=== PATIENT | female | born 2000 | race Caucasian/White ===

== ENCOUNTER 2020-12-03 09:03 | Outpatient (CLI) | payer BC, OTHER, SELFPAY ==
[2020-12-03 10:06] LABS: Basophils Absolute Auto 0.1 K/mm3 (0.0-0.1); Basophils Percent Auto 0.5 % (0.2-1.2); Eosinophils Absolute Auto 0.5 K/mm3 (0-0.3); Eosinophils Percent Auto 4.5 % (0-4.4); Hematocrit 39.5 % (37.0-47.0); Hemoglobin 12.7 g/dL (12.0-15.0); Immature Granulocyte Absolute 0.03 K/mm3 (0.00-0.031); Immature Granulocyte Percent A 0.2 % (0-0.5); Lymphocytes Absolute Auto 3.38 K/mm3 (0.9-3.2); Mean Corpuscular HGB Conc 32.2 g/dl (32-36); Mean Corpuscular Hemoglobin 27.3 pg (26-34); Mean Corpuscular Volume 84.9 fl (80-100); Mean Platelet Volume 9.3 fl (7.4-10.4); Monocytes Absolute Auto 0.8 K/mm3 (0.1-0.6); Monocytes Percent Auto 6.2 % (2.6-8.5); Neutrophils Absolute Auto 7.3 K/mm3 (1.3-6.7); Neutrophils Percent Auto 60.6 % (45.5-73.1); Platelet Count Result 334 k/mm3 (150-375); Red Blood Count 4.65 M/mm3 (4.2-5.4); Red Cell Distribution Width 13.7 % (11.5-14.5); White Blood Count 12.1 K/mm3 (4.5-10.0)
[2020-12-03 10:14] LABS: Alanine Aminotransferase 25 U/L (4-35); Albumin Level 4.6 g/dL (3.5-5.1); Alkaline Phosphatase 89 U/L (38-126); Anion Gap 9 mmol/L (8-16); Aspartate Amino Transferase 20 U/L (14-36); Bilirubin,Total 0.3 mg/dL (0.2-1.3); Blood Urea Nitrogen 10 mg/dL (7-17); Calcium 9.6 mg/dL (8.4-10.2); Carbon Dioxide 26 mmol/L (22-30); Chloride 106 mmol/L (98-107); Cholesterol 210 mg/dL (0-200); Estimated Glomerular Filt Rate > 60; Glucose 102 mg/dL (65-110); HDL Direct 28 mg/dL; Potassium 4.2 mmol/L (3.4-5.0); Sodium 141 mmol/L (137-145); Triglycerides 298 mg/dL (<150)
[2020-12-03 10:25] LABS: LDL Cholesterol Direct 121 mg/dL
== END 2020-12-03 09:04 | disposition home or self-care (01) ==
PROVIDERS: PCP Internal Medicine; Visit Provider Nurse Practitioner
DX: Z13.228 Encounter for screening for other metabolic disorders (principal); Z13.220 Encounter for screening for lipoid disorders
CPT/HCPCS: 36415; 80053; 80061; 85025

== ENCOUNTER 2021-02-10 08:53 | Outpatient (CLI) | payer BC, OTHER, SELFPAY ==
[2021-02-10 09:42] LABS: Basophils Absolute Auto 0.1 K/mm3 (0.0-0.1); Basophils Percent Auto 0.5 % (0.2-1.2); Eosinophils Absolute Auto 0.6 K/mm3 (0-0.3); Eosinophils Percent Auto 4.9 % (0-4.4); Hematocrit 39.1 % (37.0-47.0); Hemoglobin 12.9 g/dL (12.0-15.0); Immature Granulocyte Absolute 0.05 K/mm3 (0.00-0.031); Immature Granulocyte Percent A 0.4 % (0-0.5); Lymphocytes Absolute Auto 3.43 K/mm3 (0.9-3.2); Lymphocytes Percent Auto 28.7 % (18.3-44.2); Mean Corpuscular Hemoglobin 26.9 pg (26-34); Mean Corpuscular Volume 81.6 fl (80-100); Mean Platelet Volume 9.3 fl (7.4-10.4); Monocytes Absolute Auto 0.7 K/mm3 (0.1-0.6); Monocytes Percent Auto 5.4 % (2.6-8.5); Neutrophils Absolute Auto 7.2 K/mm3 (1.3-6.7); Neutrophils Percent Auto 60.1 % (45.5-73.1); Platelet Count Result 329 k/mm3 (150-375); Red Blood Count 4.79 M/mm3 (4.2-5.4); Red Cell Distribution Width 13.8 % (11.5-14.5); White Blood Count 11.9 K/mm3 (4.5-10.0)
== END 2021-02-10 08:54 | disposition home or self-care (01) ==
LOC: ANHLAB 08:54
PROVIDERS: PCP Internal Medicine; Visit Provider Nurse Practitioner
DX: D72.829 Elevated white blood cell count, unspecified (principal)
CPT/HCPCS: 36415; 85025

== ENCOUNTER 2021-03-26 10:00 | Outpatient (CLI) | payer BC, OTHER, SELFPAY ==
--- NOTE | 2021-03-26 15:20 | WPDPFTINT ---
PFT Procedure Performed PFT Procedure Performed Spirometry with Pre/Post Bronchodilator Plethysmography (Lung Vol) Diffusing Cap (DLCO) Flow Vol Loop PFT Interpretation This is a pulmonary function test with pre and post-bronchodilator spirometry, plethysmography and diffusing capacity. The test was performed and results interpreted in accordance with the 2019 and 2005 ATS/ERS Task Force guidelines respectively using the Global Lung Function Initiative-2012 reference equations. Patient demonstrated good effort and cooperation. Reproducibility criteria were met. The quality of the pre bronchodilator spirometry maneuver was Grade A and post bronchodilator spirometry maneuver was Grade A. Findings: Spirometry:The contour the inspiratory and expiratory flow tracing are normal. The pre bronchodilator FVC is 4.35 L, 106% predicted. The pre bronchodilator FEV1 is 3.56 L, 100% predicted. The FEV1: FVC ratio was 82%. The post bronchodilator FVC is 4.28 L, representing 1% decrease. The post bronchodilator FEV1 is 3.62 L, representing a 2% decrease. The post bronchodilator FEV1: FVC ratio is 85%. Plethysmography: The total lung capacity is 5.35 L, 99% predicted. The functional residual capacity is 2.65 L, 90% predicted. The residual volume is 1.00 L, 74% predicted. Diffusing capacity: The absolute diffusion capacity is 28.3, 107% predicted. The diffusing capacity corrected for alveolar volume is 5.33, 108% predicted. Impression: The spirometry is normal without evidence of an obstructive abnormality. There is no significant improvement after inhaling a single dose of albuterol. The lung volumes are normal. The diffusing capacity is normal. There are no prior studies for comparison
== END 2021-03-26 10:01 | disposition home or self-care (01) ==
PROVIDERS: PCP Internal Medicine; Visit Provider Family Medicine
DX: R06.00 Dyspnea, unspecified (principal)
CPT/HCPCS: 94060; 94726; 94729

== ENCOUNTER 2022-07-08 09:46 | Outpatient (CLI) | payer BC, SELFPAY ==
[2022-07-08 18:39] LABS: Basophils Absolute Auto 0.1 K/mm3 (0.0-0.1); Basophils Percent Auto 0.6 % (0.2-1.2); Eosinophils Absolute Auto 0.4 K/mm3 (0-0.3); Eosinophils Percent Auto 3.5 % (0-4.4); Hematocrit 42.1 % (37.0-47.0); Hemoglobin 13.7 g/dL (12.0-15.0); Immature Granulocyte Absolute 0.04 K/mm3 (0.00-0.031); Immature Granulocyte Percent A 0.4 % (0-0.5); Lymphocytes Percent Auto 33.6 % (18.3-44.2); Mean Corpuscular HGB Conc 32.5 g/dl (32-36); Mean Corpuscular Hemoglobin 27.7 pg (26-34); Mean Corpuscular Volume 85.1 fl (80-100); Mean Platelet Volume 9.3 fl (7.4-10.4); Monocytes Absolute Auto 0.6 K/mm3 (0.1-0.6); Monocytes Percent Auto 5.6 % (2.6-8.5); Neutrophils Absolute Auto 6.2 K/mm3 (1.3-6.7); Neutrophils Percent Auto 56.3 % (45.5-73.1); Platelet Count Result 358 k/mm3 (150-375); Red Blood Count 4.95 M/mm3 (4.2-5.4); Red Cell Distribution Width 13.3 % (11.5-14.5)
[2022-07-08 19:06] LABS: Alanine Aminotransferase 36 U/L (6-35); Albumin Level 4.6 g/dL (3.5-5.1); Alkaline Phosphatase 79 U/L (38-126); Anion Gap 6 mmol/L (8-16); Aspartate Amino Transferase 37 U/L (14-36); Bilirubin,Total 0.4 mg/dL (0.2-1.3); Blood Urea Nitrogen 12 mg/dL (7-17); Calcium 9.1 mg/dL (8.4-10.2); Carbon Dioxide 30 mmol/L (22-30); Chloride 103 mmol/L (98-107); Estimated Glomerular Filt Rate > 60; Glucose 83 mg/dL (65-110); Potassium 4.5 mmol/L (3.4-5.0); Sodium 139 mmol/L (137-145)
== END 2022-07-08 09:47 | disposition home or self-care (01) ==
LOC: ANHGOSHLAB 09:48
PROVIDERS: PCP Internal Medicine; Visit Provider Nurse Practitioner
DX: F41.9 Anxiety disorder, unspecified (principal)
CPT/HCPCS: 36415; 80053; 84443; 85025

== ENCOUNTER 2022-11-23 10:47 | Outpatient (CLI) | payer BC, SELFPAY ==
[2022-11-23 19:05] LABS: Basophils Absolute Auto 0.1 K/mm3 (0.0-0.1); Basophils Percent Auto 0.5 % (0.2-1.2); Eosinophils Absolute Auto 0.8 K/mm3 (0-0.3); Eosinophils Percent Auto 7.5 % (0-4.4); Hematocrit 40.4 % (37.0-47.0); Hemoglobin 13.1 g/dL (12.0-15.0); Immature Granulocyte Absolute 0.06 K/mm3 (0.00-0.031); Immature Granulocyte Percent A 0.6 % (0-0.5); Lymphocytes Absolute Auto 3.24 K/mm3 (0.9-3.2); Lymphocytes Percent Auto 31.7 % (18.3-44.2); Mean Corpuscular HGB Conc 32.4 g/dl (32-36); Mean Corpuscular Hemoglobin 27.6 pg (26-34); Mean Corpuscular Volume 85.1 fl (80-100); Monocytes Absolute Auto 0.5 K/mm3 (0.1-0.6); Monocytes Percent Auto 4.9 % (2.6-8.5); Neutrophils Absolute Auto 5.6 K/mm3 (1.3-6.7); Neutrophils Percent Auto 54.8 % (45.5-73.1); Platelet Count Result 329 k/mm3 (150-375); Red Blood Count 4.75 M/mm3 (4.2-5.4); Red Cell Distribution Width 13.6 % (11.5-14.5); White Blood Count 10.2 K/mm3 (4.5-10.0)
[2022-11-23 19:20] LABS: Alanine Aminotransferase 38 U/L (6-35); Albumin Level 4.1 g/dL (3.5-5.1); Alkaline Phosphatase 83 U/L (38-126); Anion Gap 5 mmol/L (8-16); Aspartate Amino Transferase 35 U/L (14-36); Bilirubin,Total 0.3 mg/dL (0.2-1.3); Blood Urea Nitrogen 10 mg/dL (7-17); Calcium 8.9 mg/dL (8.4-10.2); Carbon Dioxide 30 mmol/L (22-30); Chloride 105 mmol/L (98-107); Estimated Glomerular Filt Rate > 60; Glucose 100 mg/dL (65-110); Sodium 140 mmol/L (137-145)
== END 2022-11-23 10:48 | disposition home or self-care (01) ==
LOC: ANHGOSHLAB 10:48
PROVIDERS: PCP Internal Medicine; Visit Provider Clinical Nurse Specialist
DX: D72.829 Elevated white blood cell count, unspecified (principal)
CPT/HCPCS: 36415; 80053; 85025

== ENCOUNTER 2023-10-26 10:17 | Outpatient (CLI) | payer BC, SELFPAY ==
--- NOTE | ~2023-10-26 | US_ITS ---
EXAMINATION: US OB transvaginal DATE: 10/26/2023 11:02 INDICATION: Uncertain dating of first trimester . TECHNIQUE: Real-time pelvic ultrasound utilizing both a transvaginal and transabdominal probe was pe rformed. The interpreting radiologist was not present for the study. COMPARISON: None. FINDINGS: The uterus measures 8.9 x 7.2 x 6.9 cm. There is an intrauterine gestational sac. A yolk sac and fet al pole are identified. The crown rump length measures 1.4 cm, which correlates with an estimated ges tational age of 7 weeks and 5 days. heart motion is identified measuring 176 beats per minute ( bpm) by M-mode Doppler. The right ovary measures 4.2 x 3.5 x 2.8 cm. Vascular flow identified in the right ovary on color Dop pler. The left ovary is not visualized. There is no free fluid in the pelvis. IMPRESSION: 1. Single living fetus with heart rate of 176 bpm. 2. Gestational age by ultrasound of 7 weeks 5 day(s) +/- 5 day(s) with ultrasound estimated date of delivery (KELLI) of 06/08/2024. Reviewed, dictated and finalized at location A. IMPRESSION: 1. Single living fetus with heart rate of 176 bpm. 2. Gestational age by ultrasound of 7 weeks 5 day(s) +/- 5 day(s) with ultraso und estimated date of delivery (KELLI) of 06/08/2024.
== END 2023-10-26 10:18 ==
LOC: MICIMG 10:20
PROVIDERS: PCP Advanced Practice Midwife; Visit Provider Advanced Practice Midwife
DX: Z36.87 Encounter for antenatal screening for uncertain dates (principal); Z3A.00 Weeks of gestation of pregnancy not specified
CPT/HCPCS: 76817

== ENCOUNTER 2023-11-03 14:23 | Outpatient (NON) | payer BC, SELFPAY ==
[2023-11-03 14:52] VITALS: BMI 38.9
[2023-11-03 14:54] LABS: Basophils Percent Auto 0.3 % (0.2-1.2); Eosinophils Absolute Auto 0.2 K/mm3 (0-0.3); Eosinophils Percent Auto 1.4 % (0-4.4); Hemoglobin 12.7 g/dL (12.0-15.0); Immature Granulocyte Absolute 0.09 K/mm3 (0.00-0.031); Immature Granulocyte Percent A 0.6 % (0-0.5); Lymphocytes Absolute Auto 3.63 K/mm3 (0.9-3.2); Lymphocytes Percent Auto 24.9 % (18.3-44.2); Mean Corpuscular HGB Conc 34.3 g/dl (32-36); Mean Corpuscular Hemoglobin 28.3 pg (26-34); Mean Corpuscular Volume 82.6 fl (80-100); Mean Platelet Volume 8.6 fl (7.4-10.4); Monocytes Absolute Auto 0.8 K/mm3 (0.1-0.6); Monocytes Percent Auto 5.6 % (2.6-8.5); Neutrophils Absolute Auto 9.8 K/mm3 (1.3-6.7); Neutrophils Percent Auto 67.2 % (45.5-73.1); Platelet Count Result 342 k/mm3 (150-375); Red Blood Count 4.48 M/mm3 (4.2-5.4); Red Cell Distribution Width 13.2 % (11.5-14.5); White Blood Count 14.6 K/mm3 (4.5-10.0)
[2023-11-03 15:12] LABS: Alanine Aminotransferase 41 U/L (6-35); Albumin Level 4.4 g/dL (3.5-5.1); Alkaline Phosphatase 92 U/L (38-126); Anion Gap 13 mmol/L (4-12); Aspartate Amino Transferase 24 U/L (14-36); Bilirubin,Total 0.3 mg/dL (0.2-1.3); Blood Urea Nitrogen 8 mg/dL (7-17); Calcium 9.1 mg/dL (8.4-10.2); Carbon Dioxide 22 mmol/L (22-30); Chloride 98 mmol/L (98-107); Estimated CRCL calculation 204 ml/min; Estimated Glomerular Filt Rate > 60; Glucose 91 mg/dL (65-110); Potassium 3.5 mmol/L (3.4-5.0); Sodium 133 mmol/L (137-145); Uric Acid 4.2 mg/dL (2.5-7.5)
[2023-11-03 15:36] LABS: Collection Time Urine 24 HOURS
[2023-11-03 15:54] LABS: Creatinine Urine 60.1 mg/dL; Patient Weight 227 Lbs; Total Protein Urine Random 10 mg/dL
[2023-11-03 16:03] LABS: Creatinine Clearance Urine 245.7 ml/min (75-125); Total Protein Urine 24 Hr 280 mg/24hr (28-141); Total Volume 24 Hour Urine 2800 ml
== END 2023-11-03 14:24 | disposition home or self-care (01) ==
PROVIDERS: PCP Advanced Practice Midwife; Visit Provider Obstetrics & Gynecology Gynecology
DX: O13.9 Gestational [pregnancy-induced] hypertension without significant proteinuria, unspecified trimester (principal); Z3A.00 Weeks of gestation of pregnancy not specified
CPT/HCPCS: 36415; 80053; 81050; 82575; 84156; 84550; 85025

== ENCOUNTER 2024-03-04 10:04 | Emergency (ER) | payer BC, SELFPAY ==
--- NOTE | 2024-03-04 10:06 | ED.URI ---
HPI - URI/Sore Throat General Chief Complaint: Upper Respiratory Infection Stated Complaint: Cough/Congestion Time Seen by Provider: 03/04/24 10:12 Source: patient and RN notes reviewed Mode of arrival: ambulatory Limitations: no limitations History of Present Illness HPI Narrative: 24-year-old female who is 26 weeks presents with concern for cough and chest congestion. She reports symptoms for about a week that are settling into her chest. She denies fever, body aches, chills, sweats. Reports productive cough MD elicited complaint: cough and sore throat Related Data Home Medications ?Medication ?Instructions ?Recorded ?Confirmed ?Last Taken ?Type labetalol 100 mg tablet mg 03/04/24 Unknown History Allergies Allergy/AdvReac Type Severity Reaction Status Date / Time strawberry Allergy Unknown Rash Verified 03/04/24 10:13 cinnamon Allergy Rash Verified 03/04/24 10:13 Review of Systems Review of Systems: CONSTITUTIONAL: Denies malaise, chills, sweats, or fever. EYES: Denies visual changes, redness, or discharge. ENT: Denies rhinorrhea, congestion, sinus pain, otalgia and sore throat. CARDIOVASCULAR: Denies chest pain, palpitations, or edema. RESPIRATORY: Reports productive cough and chest congestion. Denies dyspnea. GASTROINTESTINAL: Denies abdominal pain, nausea, vomiting, diarrhea SKIN: Denies rash or itching. MUSCULOSKELETAL: Denies myalgia. NEUROLOGIC: Denies headache. All systems reviewed & are unremarkable except as noted in HPI and below PMFSH Past Medical History Medical History Asthma Gestational hypertension Miscarriage 02/2018 with 34 completed weeks gestation Family History Family History Father Diabetes mellitus Social History Social History (Updated 05/19/23 @ 11:26 by Rachana Claire CMA) Social History: Caffeine-coffee daily Smoking status: Never smoker Alcohol intake: never Substance use: never Do You Feel Safe in your Home?: Yes Lack of Transportation: No Lack of Food: Never True Current Housing: I Have Housing Concerned About Future Housing: No Difficulty Paying Gas/Electric Bills: No Difficulty Paying for Meds: No Currently Unemployed: No Education: Bachelor's Degree Difficulty w/ Childcare or Family Care: No Gender identity (if verbalized by the patient): Female Spiritual care concerns: No Comments At time of signature, agree with nursing past medical, surgical, social and family history. There is no relevant family history pertinent to the presenting complaint Exam Narrative: GENERAL: Well-appearing, well-nourished, and in no acute distress. HEAD: Normocephalic EYES: PERRLA, conjunctivae clear ENT: Nares clear. Mucous membranes moist. TM pearly reagan with dull light reflex bilaterally; no tragal tenderness. Oropharynx not erythematous without lesions. Tonsils not enlarged and without exudate, no drooling, no hoarseness, no trismus, uvula midline. NECK: Supple. No lymphadenopathy CHEST: Clear to auscultation, breath sounds equal. No wheezing, rhonchi, rales, or stridor. No respiratory distress, speaks in full sentences. Cough noted HEART: Regular rate and rhythm. No murmur heard. SKIN: Warm, dry, no rash. NEURO: Alert and oriented x3. PSYCH: Normal mood and affect Course Course Emergency Course: Patient is aware of diagnosis, understands and agrees to treatment plan. Anticipatory guidance given. Patient agrees to follow-up as directed and is aware of reasons to seek care at the emergency department. Portions of this record may have been created with voice recognition software Level of Care: Express Care Visit Vital Signs Vital signs: Vital Signs Oxygen Delivery Room Air 03/04/24 10:10 Temperature 97.6 F 03/04/24 10:14 Pulse Rate 119 H 03/04/24 10:14 Respiratory Rate 16 03/04/24 10:14 Blood Pressure 132/81 03/04/24 10:14 Pulse Oximetry 99 03/04/24 10:14 Oxygen Delivery Room Air 03/04/24 10:10 Reviewed. MDM - URI/Sore Throat MDM Narrative Medical decision making narrative: Differential diagnosis considered: Church virus, strep pharyngitis, allergic rhinitis, upper respiratory tract infection, sinusitis, rhinosinusitis, nasopharyngitis. viral pharyngitis, otitis media, otitis externa, pneumonia, bronchitis, viral cough syndrome, viral syndrome, and influenza. Exam findings show no acute concerns or changes; patient is non-toxic appearing and is in no distress. Patient is appropriate for outpatient treatment and follow-up. Lab Data Attestation: I reviewed the patient's lab results. Critical Care Time Critical Care Time Critical Care Time: No Discharge Plan Discharge Clinical Impression: Lower respiratory tract infection Patient Disposition: Home, Self-Care Condition: Stable Instructions: Acute Cough (ED) Additional Instructions: Take medication as prescribed Recommend antihistamine such as Benadryl at night time and Zyrtec or Lindsay during the day Also, recommend symptomatic treatment includes: rest, fluids, and increase humidity of the air at home. Recommend Acetaminophen as directed on the bottle to reduce fever, pain, headache. Please schedule a follow-up visit with your personal physician for further evaluation and treatment within 3-5days. If your symptoms persist, change or worsen significantly before you can contact your personal physician then please, without delay, go to the emergency department for further evaluation. Patient Language: Japanese Prescriptions: New azithromycin [Zithromax Z-Bahman] 250 mg tablet See Rx Instructions .ROUTE .COMPLEX Qty: 6 0RF Rx Instructions: take 500 mg today (day 1), then 250 mg for 4 days (days 2-5) No Action labetalol 100 mg tablet bupropion HCl [Wellbutrin XL] 150 mg tablet extended release 24 hr 150 mg PO QAM Qty: 90 1RF venlafaxine 75 mg capsule,extended release 24hr 75 mg PO DAILY Qty: 7 0RF Rx Instructions: TAKE 1 CAPSULE EVERY DAY FOR 1 WEEK. THEN WEAN DOWN TO 37.5MG. venlafaxine 37.5 mg capsule,extended release 24hr 37.5 mg PO DAILY Qty: 14 0RF Rx Instructions: TAKE 1 CAPSULE EVERY DAY FOR 1 WEEK. AFTER 1 WEEK, TAKE 1 CAPSULE EVERY OTHER DAY. THEN STOP Follow-up/Referrals: Cmaacho Ku DO [Primary Care Provider] - Time of Disposition: 10:34
[2024-03-04 10:14] VITALS: BP 132/81; PULSE 119; RESP 16; TEMP 36.4; O2SAT 99
== END 2024-03-04 10:39 | disposition home or self-care (01) ==
PROVIDERS: Emergency Provider Nurse Practitioner; PCP Internal Medicine
DX: O26.892 Other specified pregnancy related conditions, second trimester (principal); J40 Bronchitis, not specified as acute or chronic; Z79.82 Long term (current) use of aspirin; Z79.899 Other long term (current) drug therapy; Z3A.26 26 weeks gestation of pregnancy
CPT/HCPCS: 99213; G0463

== ENCOUNTER 2024-03-07 13:06 | Emergency (ER) | payer BC, SELFPAY ==
[2024-03-07 13:41] VITALS: BP 131/74; PULSE 109; RESP 20; TEMP 36.8; O2SAT 97
--- NOTE | 2024-03-07 14:01 | ED_ITS ---
HPI - URI/Sore Throat General Chief Complaint: Upper Respiratory Infection Stated Complaint: Cough, SOB, Wheezing Time Seen by Provider: 03/07/24 14:00 Source: patient Mode of arrival: ambulatory Limitations: no limitations History of Present Illness HPI Narrative: Lakshmi is a 24-year-old female patient presenting to the clinic today with complaints of cough, shortness of breath, and wheezing. She reports she was seen on Monday given prescription for azithromycin and was diagnosed with bronchitis. She is 26 weeks . heart tones were 126 in the clinic today. She denies any chest pain. Baby is active. MD elicited complaint: cough and nasal congestion Related Data Home Medications ?Medication ?Instructions ?Recorded ?Confirmed ?Last Taken ?Type labetalol 100 mg tablet mg 03/04/24 Unknown History 03/07/24 Unknown History Vitamin D3 03/07/24 Unknown History aspirin 03/07/24 Unknown History magnesium 03/07/24 Unknown History vit no.95-ferrous 1 tablet PO DAILY 03/07/24 03/07/24 Unknown History fumarate 28 mg-folic acid 800 mcg tablet () Allergies Allergy/AdvReac Type Severity Reaction Status Date / Time strawberry Allergy Unknown Rash Verified 03/07/24 13:38 cinnamon Allergy Rash Verified 03/07/24 13:38 Review of Systems Review of Systems: Pertinent positives per HPI. Patient denies any fever, chills, rash, headache, visual changes, dizziness, chest pain, palpitations, nausea, vomiting, diarrhea, constipation, abdominal pain, or any urinary issues. [facility] Past Medical History Medical History Asthma Gestational hypertension Miscarriage 02/2018 with 34 completed weeks gestation Family History Family History Father Diabetes mellitus Social History Social History Social History: Caffeine-coffee daily Smoking status: Never smoker Alcohol intake: never Substance use: never Do You Feel Safe in your Home?: Yes Lack of Transportation: No Lack of Food: Never True Current Housing: I Have Housing Concerned About Future Housing: No Difficulty Paying Gas/Electric Bills: No Difficulty Paying for Meds: No Currently Unemployed: No Education: Bachelor's Degree Difficulty w/ Childcare or Family Care: No Gender identity (if verbalized by the patient): Female Spiritual care concerns: No Comments At the time of my signature, I reviewed and agree with the nursing past medical, surgical, social, and family history. There is no relevant family history pertinent to the patient complaint. Exam Narrative: General: Well-developed, well nourished, in no apparent distress Head: Normocephalic, atraumatic Eyes: Pupils equally round and reactive to light bilaterally, EOM intact, sclera and conjunctive clear, no discharge, lids normal Ears: TMs intact and clear, ear canals clear, no drainage, grossly hearing normal. Nose: Nares patent, clear nasal discharge, no inflammation, no sinus tenderness. Mouth: Oral pharynx without lesions or masses, good dentition, MMM. Neck: Supple, trachea midline, no enlargement of anterior or posterior cervical nodes, no thyroid masses or goiter palpable. Cardio: Regular rate and rhythm, s1 and s2 normal, no murmur appreciated. Resp: Faint wheezing heard over the left upper lobe, no rhonchi, rales, or rubs Course Course Emergency Course: Portions of this record may have been created with voice recognition software. Level of Care: Express Care Visit Vital Signs Vital signs: Vital signs reviewed MDM - URI/Sore Throat Differential Diagnosis Differential diagnosis: Likely sinusitis, viral infection, influenza and pharyngitis Discharge Plan Discharge Clinical Impression: Bronchitis Patient Disposition: Home, Self-Care Condition: Stable Instructions: Antibiotic Form, Acute Bronchitis (ED) Additional Instructions: heart tones were 128 in the clinic today Take prescription medications only as prescribed-albuterol inhaler Increase fluids and stay well hydrated Tylenol for pain/fever Flonase and OTC antihistamines as directed Vicks vapor rub to open sinuses Sinus rinses for congestion Cepacol spray, cough drops, throat lozenges, warm tea with honey/lemon, gargle salt water to soothe throat BRAT diet for diarrhea Clear liquids x 24 hours then advance as tolerated for nausea/vomiting Go to the ED if you develop a worsening in your condition- high fever not controlled by Tylenol or Motrin, dehydration, weakness, lethargy, shortness of breath, or chest pain. Follow up with your PCP in 3-5 days if symptoms persist. Approved Medications for Patients Cold and Flu Symptoms --Tylenol (regular or extra Strength) Fever (call if over 101?)--Tylenol (regular or extra Strength) Nasal Drainage/Head Congestion--Chlor-Trimeton, Sudafed, Tavist,Tylenol Sinus Cough--Robitussin, Delsym, Mucinex Sore Throat--Chloraseptic, Cepacol lozenges Allergy Symptoms--Bendryl, Zyrtec, Zyrtec D, Claritin, Claritin D Nausea--Emetrol, Vitamin B6 Tablets, Bertha, Bertha Tea, Preggie Pops, B-Hermes Suckers Constipation--Milk of Magnesia, Metamucil, Fiberall, Konsyl, Colace (Docusate Sodium) Diarrhea--Imodium, Kaopectate, Follow BRAT diet: bananas, rice, applesauce, tea/toast Heartburn--Maalox, Mylanta, TUMS, Prilosec OTC, Zantac, Tagament, Prevacid, Pepcid Hemorrhoids--Tucks Pads, Anusol, Preparation H, warm sitz baths Patient Language: Belarusian Prescriptions: New albuterol sulfate 90 mcg/actuation HFA aerosol inhaler 2 puff inhalation Q4-6H PRN (Reason: shortness of breath or wheezing) 30 Days Qty: 8.5 0RF No Action PNV cmb#95-ferrous fumarate-FA [] 28 mg iron- 800 mcg tablet 1 tablet PO DAILY magnesium Vitamin D3 aspirin labetalol 100 mg tablet azithromycin [Zithromax Z-Bahman] 250 mg tablet See Rx Instructions .ROUTE .COMPLEX Qty: 6 0RF Rx Instructions: take 500 mg today (day 1), then 250 mg for 4 days (days 2-5) bupropion HCl [Wellbutrin XL] 150 mg tablet extended release 24 hr 150 mg PO QAM Qty: 90 1RF venlafaxine 75 mg capsule,extended release 24hr 75 mg PO DAILY Qty: 7 0RF Rx Instructions: TAKE 1 CAPSULE EVERY DAY FOR 1 WEEK. THEN WEAN DOWN TO 37.5MG. venlafaxine 37.5 mg capsule,extended release 24hr 37.5 mg PO DAILY Qty: 14 0RF Rx Instructions: TAKE 1 CAPSULE EVERY DAY FOR 1 WEEK. AFTER 1 WEEK, TAKE 1 CAPSULE EVERY OTHER DAY. THEN STOP Follow-up/Referrals: Camacho Ku DO [Primary Care Provider] - Time of Disposition: 14:05 Quality NIHSS Nursing Documentation ED NIHSS nursing documentation: reviewed/agree
== END 2024-03-07 14:11 | disposition home or self-care (01) ==
PROVIDERS: Emergency Provider Nurse Practitioner Family; PCP Internal Medicine
DX: O99.891 Other specified diseases and conditions complicating pregnancy (principal); J40 Bronchitis, not specified as acute or chronic; Z3A.26 26 weeks gestation of pregnancy
CPT/HCPCS: 99213; G0463

== ENCOUNTER 2024-04-11 10:33 | Outpatient (RCR) | payer BC, SELFPAY | END 2024-07-08 09:20 | disposition home or self-care (01) | LOC: ANHDMC 10:33 | PROVIDERS: PCP Internal Medicine; Visit Provider Obstetrics & Gynecology Gynecology | DX: O24.419 Gestational diabetes mellitus in pregnancy, unspecified control (principal); Z71.89 Other specified counseling | CPT/HCPCS: G0108 ==

== ENCOUNTER 2024-05-02 09:24 | Outpatient (RCR) | payer BC, SELFPAY ==
[2024-05-02 10:09] VITALS: BP 136/79; PULSE 97
== END 2024-07-03 17:01 | disposition home or self-care (01) ==
LOC: ANHOBOP 09:24
PROVIDERS: PCP Internal Medicine; Visit Provider Obstetrics & Gynecology Gynecology
DX: O13.9 Gestational [pregnancy-induced] hypertension without significant proteinuria, unspecified trimester (principal)
CPT/HCPCS: 59025

== ENCOUNTER 2024-06-03 06:28 | Inpatient (IN) | payer BC, SELFPAY ==
[2024-06-03] VITALS (119 sets, daily range): BP systolic 114–157; BP diastolic 49–97; PULSE 73–106; RESP 16; TEMP 35.8–36.6; O2SAT 98–100
--- OUTSIDE RECORDS SUMMARY | 2024-06-03 06:34 | XMS_ITS | Clinical Summary ---
Author Organization [facility] Address [address] [place] [address] Phone Care Team Providers Care Licensed Guide Name Role Phone Unavailable Primary Care Provider Unavailabl e Allergies Active Allergy Reactions Criticality Noted Date Comments Bee Pollen Rash Low 03/01/2024 Cinnamon Itching Low 03/01/2024 [place] Hives High 03/01/2024 Medications labetaloL (NORMODYNE) 100 mg tablet Take 1 Tablet by mouth 2 times daily. 01/18/2024 Active MAGNESIUM GLYCINATE ORAL Take by mouth. Active VIT-IRON FUM-FOLIC AC ORAL Take by mouth. Active CALCIUM CARBONATE-VITAMI N D3 ORAL Take by mouth. Active aspirin (ECOTRIN EC) 81 mg Tablet, Delayed Release (E.C.) Take 162 mg by mouth daily. 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 , antepartum 03/01/2024 History of pre-eclampsia in prior , currently 03/01/2024 Supervision of high-risk , second trime ster 03/01/2024 25 weeks gestation of 03/01/2024 Estimated Date of Delivery Comme nts Yes 06/08/2024 Date entered tay or to episode creation Encounters Date Type Department Care Team Description 05/18/2024 External Device Data STL ABSTRACTION Provider, Abstract 05/18/2024 External Device Data STL ABSTRACTION Provider, Abstract 05/16/2024 9:28 AM GRIZZLYMAN - 05/16/2024 11:59 PM GRIZZLYMAN Hospital Encounter [facility] Maternal and Health [facility] 2022 Mikel Ulloa [address] [place] [phone] Koffi Lowry MD Discharge Disposition: Home or Self Care 05/15/2024 External Device Data STL ABSTRACTION Provider, Abstract 05/01/2024 External Device Data STL ABSTRACTION Provider, Abstract 04/18/2024 9:54 AM GRIZZLYMAN - 04/18/2024 11:59 PM GRIZZLYMAN Hospital Encounter [facility] Mikel Ulloa [address] [place] [phone] Klaus Bello MD Discharge Disposition: Home or Self Care 04/10/2024 External Device Data STL ABSTRACTION Provider, Abstract 04/04/2024 External Device Data STL ABSTRACTION Provider, Abstract 03/21/2024 9:08 AM GRIZZLYMAN - 03/21/2024 11:59 PM GRIZZLYMAN Hospital Encounter [facility] Mikel Ulloa [address] [place] [phone] Klaus Bello MD Discharge Disposition: Home or Self Care from Last 3 Months Social History Tobacco Use Types Packs/Day Years Used Date Smoking Tobacco: Never Smokeless Tobacco: Never Tobacco Cessation:Counseling Given: Yes Alcohol Use Standard Drinks/Week Comments Not Currently 0 (1 standard drink = 0.6 oz pur e alcohol) Estimated Date of Delivery Comme nts Yes 06/08/2024 Date entered tay or to episode creation Sex and Gender Information Value Date Recorded Sex Assigned at Not on file Legal Sex Female 2:24 PM CDT Gender Identity Not on file Sexual Orientation Not on file Last Filed Vital Signs Vital Sign Reading Time Taken Comments Blood Pressure 126/68 03/01/2024 9:34 AM GRIZZLYMAN Pulse 110 03/01/2024 9:34 AM GRIZZLYMAN Temperature - - Respiratory Rate - - Oxygen Saturation 98% 03/01/2024 9:34 AM GRIZZLYMAN Inhaled Oxygen Concentration - - Weight 108 kg (238 lb) 03/01/2024 9:34 AM GRIZZLYMAN Height 162.6 cm (5' 4 ) 03/01/2024 9:34 AM GRIZZLYMAN Body Mass Index 40.85 03/01/2024 9:34 AM GRIZZLYMAN Plan of Treatment Health Maintenance Due Date Last Done Comments HPV VACCINES (1 - 3-dose series) 2013 DTAP/TDAP/TD VACCINES (1 - Tdap) 2017 HEPATITIS B VACCINES (1 of 3 - 19+ 3-dose series) 11/2016 INFLUENZA VACCINE (#1) 2023 CERVICAL CANCER SCREENING 01/16/2026 PAP SMEAR 01/16/2026 01/16/2023 PAP SMEAR 01/16/2026 01/16/2023 RSV VACCINE (60+ or ) (No Doses Required) Comp leted Procedures Procedure Name Priority Date/Time Associated Diagnosis Comments US OB FOLLOW UP PER FETUS Routine 05/16/2024 10:00 AM GRIZZLYMAN Chronic hypertension in Anxiety during US OB FOLLOW UP PER FETUS Routine 04/18/2024 10:33 AM GRIZZLYMAN Chronic hypertension in Anxiety during US OB FOLLOW UP PER FETUS Routine 03/21/2024 9:40 AM GRIZZLYMAN Chronic hypertension in Anxiety during from Last 3 Months Results * US OB FOLLOW UP PER FETUS (05/16/2024 10:00 AM GRIZZLYMAN) Only the most recent of3 resultswithin the time period is included. Anatomical Region Laterality Modality Pelvis Ultrasound 05/16/2024 9:36 AM GRIZZLYMAN Narrative 05/16/2024 10:05 AM GRIZZLYMAN STL FOLLOW UP ----- Pat. Name: JENARO PINEDO Study Date: 05/16/2024 9:36am Pat. NO: [id number] Referring MD: TEJ PACHECO MD Site: [place] Handle Maker: Radha Pa RDMS : 2000 Age: 24 ----- INDICATION ----- Screening Follow-Up Chronic Hypertension (HTN) Anxiety, Maternal Asthma Complicating Maternal Obesity (BMI<40) Complicating CODING ----- Diagnoses Z3A.36: Weeks of gestation O99.213: Obesity complicating O99.513: Diseases of the respiratory system complicating O99.343: Other mental disorders complicating O10.013: Pre-existing essential hypertension complicating Z36.3: Encounter for screening for malformations Procedures 49514: Ultrasound, uterus, real time with image documentation, follow up, transabdominal approach per fetus HISTORY ----- OB History 3. Para 1 T1A1L1 MATERNAL ASSESSMENT ----- Physical Exam Initial weight 102 kg, 225 lb. Initial BMI 38.62 kg/m METHOD ----- Transabdominal ultrasound examination ----- Whitney . Number of fetuses: 1 DATING ----- GA by prior assessment 36 w + 5 d KELLI by prior assessment: 06/08/2024 Ultrasound examination on: 05/16/2024 GA by U/S based upon: AC, BPD, Femur, HC GA by U/S 39 w + 0 d KELLI by U/S: 05/23/2024 Method of dating: Restore dating from previous exam Assigned: based on stated KELLI, selected on 01/22/2024 Assigned GA 36 w + 5 d Assigned KELLI: 06/08/2024 BIOMETRY ----- BPD 95.2 mm 38w 6d 97% Hadlock OFD 125.5 mm -/- >99% Minnie HC 350.9 mm 40w 6d 97% Hadlock AC 358.0 mm 39w 5d >99% Hadlock Femur 70.8 mm 36w 2d 36% Hadlock HC / AC 0.98 29% Nicolaides Weight Calculation: EFW 3,661 g -/- 96% Hadlock EFW (lb,oz) 8 lb 1 oz EFW by Hadlock ([id number]) Head / Face / Neck Biometry: Anhydrous Ammonia Production Supervisor 4.1 mm Extremities / Bony Struc Biometry: FL / BPD 0.74 FL / HC 0.20 FL / AC 0.20 GENERAL EVALUATION ----- Cardiac activity present. FHR 159 bpm. movements: present. Presentation: cephalic Placenta: Placental site: posterior Umbilical cord: Insertion site: placental insertion: normal Amniotic fluid: Amount of AF: normal amount. MVP 4.4 cm. CHRISTIAN 15.3 cm. Q1 4.4 cm, Q2 3.7 cm, Q3 4.4 cm, Q4 2.7 cm ANATOMY ----- The following structures appear normal: Head / Neck Cranium. Lateral ventricles. Cavum septi pellucidi. Heart / Thorax RVOT view. LVOT view. Diaphragm. Abdomen Stomach. Kidneys. Bladder. GROWTH OVERVIEW ----- Exam date GA BPD (mm) HC (mm) AC (mm) FL (mm) HL (mm) EFW (g) 01/22/2024 20w 2d 46.1 35% 173.4 24% 163.3 79% 33.9 55% 33.4 85% 385 77% 02/19/2024 24w 2d 61.5 69% 227.4 49% 208.0 75% 46.6 75% 798 85% 03/21/2024 28w 5d 73.5 63% 272.4 48% 266.5 93% 56.2 60% 1,525 86% 04/18/2024 32w 5d 87.7 97% 325.4 97% 315.2 98% 62.3 26% 2,506 93% 05/16/2024 36w 5d 95.2 97% 350.9 97% 358.0 >99% 70.8 36% 3,661 96% COMMENT ----- Patient's name and date of were verified by the medical records receptionist prior to the exam IMPRESSION ----- Viable at 36 weeks gestation complicated by chronic hypertension and maternal obesity Cephalic presentation The biometry is consistent with LGA growth Estimated weight at the 96th percentile with abdominal circumference at the 98th percentile Normal interval growth Amniotic fluid volume is normal Patient is doing monitoring at her OB provider's office No follow-up ultrasounds recommended Procedure Note Klaus Bello MD - 05/16/2024 STL FOLLOW UP ----- Pat. Name:Yun PINEDO Date:05/16/2024 9:36am Pat. NO: [id number] :TEJ PACHECO [facility]Radha Pa ALEXANDER :2000Age:24 ----- INDICATION ----- Screening Follow-Up Chronic Hypertension (HTN) Anxiety, Maternal Asthma Complicating Maternal Obesity (BMI<40) Complicating CODING ----- Diagnoses Z3A.36: Weeks of gestation O99.213: Obesity complicating O99.513: Diseases of the respiratory systemcomplicating O99.343: Other mental disorders complicatingpregnancy O10.013: Pre-existing essential hypertensioncomplicating Z36.3: Encounter for screening formalformations Procedures 21952: Ultrasound, uterus, real time withimage documentation, follow up, transabdominal approach per fetus HISTORY ----- OB History 3. Para 1 T1A1L1 MATERNAL ASSESSMENT ----- Physical Exam Initial weight 102 kg, 225 lb. Initial BMI 38.62kg/m METHOD ----- Transabdominal ultrasound examination ----- Whitney . Number of fetuses: 1 DATING ----- GA by prior [email or web address] w + 5 d KELLI by prior assessment:06/08/2024 Ultrasound examination on:05/16/2024 GA by U/S based upon:AC, BPD, Femur, HC GA by U/S39 w + 0 d KELLI by U/S:05/23/2024 Method of dating:Restore dating from previous exam Assigned:based on stated KELLI, selected on 01/22/2024 Assigned GA36 w + 5 d Assigned KELLI:06/08/2024 BIOMETRY ----- BPD 95.2 mm 38w 6d 97%Hadlock OFD 125.5 mm -/- >99%Minnie HC 350.9 mm 40w 6d 97%Hadlock AC 358.0 mm 39w 5d >99%Hadlock Femur 70.8 mm 36w 2d 36%Hadlock HC / AC 0.98 29%Nicolaides Weight Calculation: EFW 3,661 g -/- 96%Hadlock EFW (lb,oz) 8 lb 1 oz EFW by Hadlock (YFW-FT-SA-FL) Head / Face / Neck Biometry: Anhydrous Ammonia Production Supervisor 4.1mm Extremities / Bony Struc Biometry: FL / BPD 0.74 FL / HC 0.20 FL / AC 0.20 GENERAL EVALUATION ----- Cardiac activity present. FHR 159 bpm. movements: present.Presentation: cephalic Placenta: Placental site: posterior Umbilical cord: Insertion site: placental insertion: normal Amniotic fluid: Amount of AF: normal amount. MVP 4.4 cm. CHRISTIAN 15.3 cm. Q14.4 cm, Q2 3.7 cm, Q3 4.4 cm, Q4 2.7 cm ANATOMY ----- The following structures appear normal: Head / Neck Cranium. Lateral ventricles. Cavum septipellucidi. Heart / Thorax RVOT view. LVOT view. Diaphragm. Abdomen Stomach. Kidneys. Bladder. GROWTH OVERVIEW ----- Exam date GA BPD (mm) HC (mm) AC (mm)FL (mm) HL (mm) EFW (g) 01/22/2024 20w 2d 46.1 35% 173.4 24% 163.3 79%33.9 55% 33.4 85% 385 77% 02/19/2024 24w 2d 61.5 69% 227.4 49% 208.0 75%46.6 75% 798 85% 03/21/2024 28w 5d 73.5 63% 272.4 48% 266.5 93%56.2 60% 1,525 86% 04/18/2024 32w 5d 87.7 97% 325.4 97% 315.2 98%62.3 26% 2,506 93% 05/16/2024 36w 5d 95.2 97% 350.9 97% 358.0 >99%70.8 36% 3,661 96% COMMENT ----- Patient's name and date of were verified by the medical records receptionist prior tothe exam IMPRESSION ----- Viable at 36 weeks gestation complicated by chronic hypertensionand maternal obesity Cephalic presentation The biometry is consistent with LGA growth Estimated weight at the 96th percentile with abdominal circumferenceat the 98th percentile Normal interval growth Amniotic fluid volume is normal Patient is doing monitoring at her OB provider's office No follow-up ultrasounds recommended us Koffi Lowry MD US ORDERABLES Final Result from Last 3 Months Insurance BCBS OUT OF STATE
--- NOTE | 2024-06-03 06:58 | P.PNAN_ITS ---
Anes - Eval Pre Procedure Procedure: labor epidural Date/Time: 06/03/24 06:58 Surgeon: michael Preop Diagnosis: pain during labor Pre Op Diagnosis: IOL Patient Data Age: 24 Gender: F Height: Weight: Last Vital Signs Pulse 98 06/03/24 06:48 BP 147/85 H 06/03/24 06:48 Allergies Allergy/AdvReac Type Severity Reaction Status Date / Time strawberry Allergy Unknown Rash Verified 05/18/24 13:28 cinnamon Allergy Rash Verified 05/18/24 13:28 No Known Drug Allergies Allergy None Verified 05/18/24 13:28 Home Medications ?Medication ?Instructions ?Recorded ?Confirmed ?Type labetalol 100 mg tablet 100 mg PO BID 03/04/24 05/18/24 History Vitamin D3 PO DAILY 03/07/24 History aspirin 162 mg BYMOUTH DAILY 03/07/24 05/18/24 History magnesium 400 mg BYMOUTH DAILY 03/07/24 05/18/24 History vit no.95-ferrous 1 tablet PO DAILY 03/07/24 05/18/24 History fumarate 28 mg-folic acid 800 mcg tablet () ferrous sulfate 325 mg (65 mg 325 mg PO BID 04/14/24 05/18/24 History iron) tablet insulin NPH isoph U-100 human 100 73 unit subcut QPM 05/18/24 05/18/24 History unit/mL (3 mL) subcutaneous pen (Novolin N FlexPen) Patient hx anesthesia problems: none Family hx anesthesia problems: none Results Review: All pre-operative results and documents have been reviewed as part of the pre- operative evaluation. [facility] Past Medical History Medical History (Updated 04/15/24 @ 00:00 by Tiffany Salmon) Miscarriage 02/2018 Gestational hypertension Asthma with 34 completed weeks gestation Family History Family History (Updated 05/18/24 @ 13:38 by Basia Lozano RN) Father Diabetes mellitus Grandparent Cancer Grandparent Hypertension Social History Social History Social History: Caffeine-coffee daily Smoking status: Never smoker Alcohol intake: never Substance use: never Do You Feel Safe in your Home?: Yes Lack of Transportation: No Lack of Food: Never True Current Housing: I Have Housing Concerned About Future Housing: No Difficulty Paying Gas/Electric Bills: No Difficulty Paying for Meds: No Currently Unemployed: No Education: Bachelor's Degree Difficulty w/ Childcare or Family Care: No Gender identity (if verbalized by the patient): Female Spiritual care concerns: No Exam Day of Procedure 06/03/24 06:58
[2024-06-03 07:44] LABS: Basophils Percent Auto 0.3 % (0.2-1.2); Eosinophils Absolute Auto 0.3 K/mm3 (0-0.3); Eosinophils Percent Auto 2.5 % (0-4.4); Hematocrit 34.7 % (37.0-47.0); Hemoglobin 11.7 g/dL (12.0-15.0); Immature Granulocyte Absolute 0.06 K/mm3 (0.00-0.031); Immature Granulocyte Percent A 0.5 % (0-0.5); Immature Platelet Fraction Pct 4.8 % (0.9-11.2); Lymphocytes Absolute Auto 2.11 K/mm3 (0.9-3.2); Lymphocytes Percent Auto 18.2 % (18.3-44.2); Mean Corpuscular HGB Conc 33.7 g/dl (32-36); Mean Corpuscular Hemoglobin 27.8 pg (26-34); Mean Corpuscular Volume 82.4 fl (80-100); Mean Platelet Volume 10.4 fl (7.4-10.4); Monocytes Absolute Auto 0.5 K/mm3 (0.1-0.6); Monocytes Percent Auto 4.2 % (2.6-8.5); Neutrophils Absolute Auto 8.6 K/mm3 (1.3-6.7); Neutrophils Percent Auto 74.3 % (45.5-73.1); Platelet Count Result 216 k/mm3 (150-375); Red Blood Count 4.21 M/mm3 (4.2-5.4); Red Cell Distribution Width 15.7 % (11.5-14.5); White Blood Count 11.6 K/mm3 (4.5-10.0)
--- NOTE | 2024-06-03 07:45 | WPDOBADMIT ---
Obstetrics - Admit Note Admission Note: record reviewed. No pertinent additions to the history and/or any subsequent changes in the physical findings that are not consistent with the expected course of the were found. Additions to the history and/or subsequent changes in the physical findings follow. Here for MIL. Cervix /-2 AROM with no fluid noted. Will recheck in a few hours. FHTs cat I.
--- NOTE | 2024-06-03 07:50 | LDADM ---
This patient, Lakshmi Pinedo, was admitted to Labor/Delivery/Recovery 105 on 06/03/24 at 06:28. Plans for labor, pain management and were discussed with patient. Patient/family oriented to hospital policies and general routines including ID bracelet, bed and alarms, visiting hours, pain management, procedures, bathroom and other care routines, personal items, smoking policy, room service/diet and guest tray routines, infant security routines, and visiting hours. Patient/Family are encouraged to report perceived risks to care and to ask questions if they do not understand what they are told or what they should do. See OBIX for further documentation.
[2024-06-03 08:09] LABS: Anisocytosis 1+; Ovalocytes 1+; Platelet Estimate Adequate (Adequate); Schistocytes None Seen; Smudge Cells FEW; Stomatocytes 1+
[2024-06-03] MEDS: OXYTOCIN 30 UNITS/NS 500 ML 30 UNITS/500 ML BAG IV CONT (08:21)
[2024-06-03] MEDS: LACTATED RINGERS 1,000 ML 125 ML IV CONT ×3 (08:23→19:12)
[2024-06-03 08:34] LABS: Glucose Point of Care 113 mg/dl (65-105)
[2024-06-03] MEDS: LABETALOL HCL 100 MG TABLET PO (08:35)
[2024-06-03 08:37] LABS: HIV 1/2 Ab P24 Ag Result Negative (Negative)
[2024-06-03 08:57] LABS: Syphilis IgG/IgM Antibody Negative (Negative)
[2024-06-03] MEDS: SODIUM CHLORIDE 0.9% IV 300 ML 600 ML I-UTERINE (10:24)
[2024-06-03 12:02] LABS: Glucose Point of Care 83 mg/dl (65-105)
[2024-06-03 15:39] LABS: Glucose Point of Care 76 mg/dl (65-105)
[2024-06-03 17:58] LABS: Glucose Point of Care 80 mg/dl (65-105)
[2024-06-03 20:15] LABS: Glucose Point of Care 88 mg/dl (65-105)
--- NOTE | 2024-06-03 21:05 | PM.OBPRVD ---
OB - Vaginal Delivery Note Procedure Delivery date: 06/03/24 Events: Chronic Hypertension and Gestational Diabetes (GDMA2) Induction method: AROM and Per Pitocin Protocol Delivery monitor: External FHT and Internal Uterine Route of delivery: Episiotomy description: None Laceration Description: Perineal - 2nd Degree Delivery repair: vicryl (3-0) Specimen: Yes (placenta) Quantitative Blood Loss (ml): 250 Anesthesia type: Epidural Disposition: Floor Complications: No immediate complications Baby Date of : 06/03/24 Gestational Age by Date: 39 Infant gender: Female Weight (pounds): 7 Weight (ounces): 10 presentation: vertex position: Right Occiput Anterior Placenta delivery description: Spontaneous Cord Vessel Description: 3 Vessels, Nuchal Cord (then around body then around left leg) and Delayed Cord Clamping score one minute: 8 score five minutes: 9
--- NOTE | 2024-06-03 21:06 | P.DS_ITS ---
DS: Admitting Diagnosis Discharge Date 06/04/24 Admitting Diagnosis IUP 39 wks MIL for GDMA2 and CHTN DS: Discharge Diagnosis Discharge Diagnosis (1) (normal spontaneous vaginal delivery): Code(s): O80 - Encounter for full-term uncomplicated delivery Status: Acute (2) Hypertension affecting : Code(s): O16.9 - Unspecified maternal hypertension, unspecified trimester Status: Acute OB - DS: Summary OB Procedures : NST, Ultrasound and Other (GDM Mgmt and CHTN Mgmt) OB Procedures Intrapartum: Spontaneous Vag Delivery OB Procedures: : None Peripartum Data Infant Delivery Method: Natural Vaginal Laceration Description: Perineal - 2nd Degree Episiotomy description: None complications: none Status at Discharge Functional status at discharge: independent ambulation Overall status at discharge: patient is progressing back to baseline Time Spent with Patient Time attestation: Total time spent providing and/or coordinating discharge services: DS: Data Data Completed and Pending Labs on day of discharge: Labs from last 24 hours 06/03/24 06/03/24 06/03/24 20:10 17:50 15:36 WBC RBC Hgb Hct MCV MCH MCHC RDW Plt Count MPV Immature Gran % (Auto) Neut % (Auto) Lymph % (Auto) Divide % (Auto) Eos % (Auto) Baso % (Auto) Lymph # (Auto) Divide # (Auto) Eos # (Auto) Baso # (Auto) Abs Immat Gran (auto) Absolute Neuts (auto) Absolute Nucleated RBC Band Neutrophils % Nucleated RBC % Smudge Cells Platelet Estimate % Immature Plt Fraction Anisocytosis Ovalocytes Stomatocytes Schistocytes POC Capillary Glucose 88 80 76 Syphilis IgG/IgM Ab HIV 1&2 Ab/P24 Ag 4thGn Blood Type Antibody Screen 06/03/24 06/03/24 06/03/24 12:20 11:39 08:28 WBC RBC Hgb Hct MCV MCH MCHC RDW Plt Count MPV Immature Gran % (Auto) Neut % (Auto) Lymph % (Auto) Divide % (Auto) Eos % (Auto) Baso % (Auto) Lymph # (Auto) Divide # (Auto) Eos # (Auto) Baso # (Auto) Abs Immat Gran (auto) Absolute Neuts (auto) Absolute Nucleated RBC Band Neutrophils % Nucleated RBC % Smudge Cells Platelet Estimate % Immature Plt Fraction Anisocytosis Ovalocytes Stomatocytes Schistocytes POC Capillary Glucose 83 113 H Syphilis IgG/IgM Ab HIV 1&2 Ab/P24 Ag 4thGn Blood Type A Positive Antibody Screen Negative 06/03/24 07:20 WBC 11.6 H RBC 4.21 Hgb 11.7 L Hct 34.7 L MCV 82.4 MCH 27.8 MCHC 33.7 RDW 15.7 H Plt Count 216 MPV 10.4 Immature Gran % (Auto) 0.5 Neut % (Auto) 74.3 H Lymph % (Auto) 18.2 L Divide % (Auto) 4.2 Eos % (Auto) 2.5 Baso % (Auto) 0.3 Lymph # (Auto) 2.11 Divide # (Auto) 0.5 Eos # (Auto) 0.3 Baso # (Auto) 0.0 Abs Immat Gran (auto) 0.06 H Absolute Neuts (auto) 8.6 H Absolute Nucleated RBC 0.000 Band Neutrophils % Not Reportable Nucleated RBC % 0.0 Smudge Cells Few Platelet Estimate Adequate % Immature Plt Fraction 4.8 Anisocytosis 1+ Ovalocytes 1+ Stomatocytes 1+ Schistocytes None seen POC Capillary Glucose Syphilis IgG/IgM Ab Negative HIV 1&2 Ab/P24 Ag 4thGn Negative Blood Type Antibody Screen Discharge Plan Discharge Attending physician on discharge: Brenda Lamb Discharging Clinician: Brenda Lamb Anticipated Discharge Date/Time: 06/05/24 21:08 Patient Disposition: Home, Self-Care Activity: may shower and pelvic rest Diet: regular Patient Instructions: Antibiotic Form Patient Language: Nauruan Stand Alone Forms: General Discharge Information, Work/School Release IP Follow-up/Referrals: Brenda Lamb MD [Physician] - 6 Weeks Discharge Medications: Continued ferrous sulfate 325 mg (65 mg iron) tablet 325 mg PO BID PNV cmb#95-ferrous fumarate-FA [] 28 mg iron- 800 mcg tablet 1 tablet PO DAILY Vitamin D3 2,000 units PO DAILY Rx Instructions: 2000IU; labetalol 100 mg tablet 100 mg PO BID Discontinued magnesium 400 mg BYMOUTH DAILY aspirin 162 mg BYMOUTH DAILY Novolin N FlexPen 100 unit/mL (3 mL) insulin pen 73 unit SUBCUT QPM Patient Comments: taking 88 units nightly Date of admission: 06/03/24 06:28 Primary Care Provider: Camacho Ku Admitting Provider: Brenda Lamb Attending physician on admission: Brenda Lamb Condition: Stable
[2024-06-03] MEDS: OXYTOCIN 30 UNITS/NS 500 ML 30 UNITS/500 ML BAG 125 UNITS IV CONT (21:18)
[2024-06-03] MEDS: BENZOCAINE 20% AER SPR (*SP) 56 GM CAN 1 SPRAY TOPICAL (22:02)
[2024-06-03] MEDS: WITCH HAZEL 40 PADS 1 PAD TOPICAL (22:02)
[2024-06-04] MEDS: ACETAMINOPHEN 325 MG TABLET 650 MG PO ×3 (02:43→19:50)
[2024-06-04 04:45] VITALS: BP 132/86; PULSE 90; RESP 16; TEMP 36.7; O2SAT 99
[2024-06-04 06:19] LABS: Hematocrit 33.1 % (37.0-47.0)
--- NOTE | 2024-06-04 06:23 | P.PNOB_ITS ---
OB - PN: Subj Subjective Date/time seen: 06/04/24 06:23 Patient comments: no complaints, pain well controlled and other (prefers discharge if ok with peds) [place] baby status: doing well OB - PN: Obj Data Labs 06/04/24 04:48 Labs: Laboratory Results - last 24 hr 06/03/24 06/03/24 06/03/24 07:20 08:28 11:39 WBC 11.6 H RBC 4.21 Hgb 11.7 L Hct 34.7 L MCV 82.4 MCH 27.8 MCHC 33.7 RDW 15.7 H Plt Count 216 MPV 10.4 Immature Gran % (Auto) 0.5 Neut % (Auto) 74.3 H Lymph % (Auto) 18.2 L [place] % (Auto) 4.2 Eos % (Auto) 2.5 Baso % (Auto) 0.3 Lymph # (Auto) 2.11 [place] # (Auto) 0.5 Eos # (Auto) 0.3 Baso # (Auto) 0.0 Abs Immat Gran (auto) 0.06 H Absolute Neuts (auto) 8.6 H Absolute Nucleated RBC 0.000 Band Neutrophils % Not Reportable Nucleated RBC % 0.0 Smudge Cells Few Platelet Estimate Adequate % Immature Plt Fraction 4.8 Anisocytosis 1+ Ovalocytes 1+ Stomatocytes 1+ Schistocytes None seen POC Capillary Glucose 113 H 83 Syphilis IgG/IgM Ab Negative HIV 1&2 Ab/P24 Ag 4thGn Negative Blood Type Antibody Screen 06/03/24 06/03/24 06/03/24 12:20 15:36 17:50 WBC RBC Hgb Hct MCV MCH MCHC RDW Plt Count MPV Immature Gran % (Auto) Neut % (Auto) Lymph % (Auto) [place] % (Auto) Eos % (Auto) Baso % (Auto) Lymph # (Auto) [place] # (Auto) Eos # (Auto) Baso # (Auto) Abs Immat Gran (auto) Absolute Neuts (auto) Absolute Nucleated RBC Band Neutrophils % Nucleated RBC % Smudge Cells Platelet Estimate % Immature Plt Fraction Anisocytosis Ovalocytes Stomatocytes Schistocytes POC Capillary Glucose 76 80 Syphilis IgG/IgM Ab HIV 1&2 Ab/P24 Ag 4thGn Blood Type A Positive Antibody Screen Negative 06/03/24 06/04/24 20:10 04:48 WBC RBC Hgb 11.0 L Hct 33.1 L MCV MCH MCHC RDW Plt Count MPV Immature Gran % (Auto) Neut % (Auto) Lymph % (Auto) [place] % (Auto) Eos % (Auto) Baso % (Auto) Lymph # (Auto) [place] # (Auto) Eos # (Auto) Baso # (Auto) Abs Immat Gran (auto) Absolute Neuts (auto) Absolute Nucleated RBC Band Neutrophils % Nucleated RBC % Smudge Cells Platelet Estimate % Immature Plt Fraction Anisocytosis Ovalocytes Stomatocytes Schistocytes POC Capillary Glucose 88 Syphilis IgG/IgM Ab HIV 1&2 Ab/P24 Ag 4thGn Blood Type Antibody Screen OB - PN A/P Plan day: 1 Plan: routine care, discharge home, follow up 6 weeks and other (condoms until vasectomy) Time Spent With Patient Time: Total time spent is greater than 50% in coordination of care (as documented) at patient's floor/unit and/or counseling patient: Exam 2 : Bimanual exam- vagina & uterus: other (Uterus firm, nt @U)
--- NOTE | 2024-06-04 08:00 | PC.NURSE ---
Breast pump provided due to [maternal request]. Instructions given on cleaning, care, usage, that there should be no pain, pumping schedule for milk production, collection, and storage of human milk. Patient was assessed for correct placement, flange size, to pump every 3 hours. Mother chooses to pump and supplement baby with formula. She has a Spectra breast pump at home.?Mother voiced understanding of the education shared along with mom/baby guide and the pump measurement, flange fit handout for additional resource information. Reported to the Primary RN.
[2024-06-04] MEDS: LABETALOL HCL 100 MG TABLET PO ×2 (08:02→16:55)
[2024-06-04] MEDS: MULTIVIT/MIN/PREN/FOL AC/IRON TABLET 1 TAB PO (08:03)
[2024-06-04 08:18] VITALS: BP 119/76; PULSE 96; RESP 16; TEMP 36.8; O2SAT 100
[2024-06-04 11:45] VITALS: BP 132/78; PULSE 97; RESP 16; TEMP 36.6; O2SAT 97
[2024-06-04] MEDS: IBUPROFEN 600 MG TABLET PO (14:15)
[2024-06-04 19:30] VITALS: BP 130/87; PULSE 90; RESP 16; TEMP 36.3; O2SAT 99
[2024-06-05] MEDS: IBUPROFEN 600 MG TABLET PO ×2 (01:20→08:06)
--- NOTE | 2024-06-05 07:45 | P.PNOB_ITS ---
OB - PN: Subj Subjective Date/time seen: 06/05/24 07:45 Patient comments: no complaints and pain well controlled baby status: doing well OB - PN: Obj Data Labs 06/04/24 04:48 OB - PN A/P Plan day: 2 Plan: routine care, discharge home and follow up 6 weeks Time Spent With Patient Time: Total time spent is greater than 50% in coordination of care (as documented) at patient's floor/unit and/or counseling patient: Exam 2 : Bimanual exam- vagina & uterus: other (Uterus firm, nt @U)
[2024-06-05 08:00] VITALS: BP 124/94; PULSE 86; RESP 18; TEMP 36.7; O2SAT 100
[2024-06-05 08:06] VITALS: PULSE 86
[2024-06-05] MEDS: MULTIVIT/MIN/PREN/FOL AC/IRON TABLET 1 TAB PO (08:06)
[2024-06-05] MEDS: LABETALOL HCL 100 MG TABLET PO (08:06)
[2024-06-05] MEDS: DOCUSATE SODIUM 100 MG CAPSULE PO (08:06)
[2024-06-05] MEDS: ACETAMINOPHEN 325 MG TABLET 650 MG PO (08:07)
--- NOTE | 2024-06-05 08:55 | PC.NURSE ---
Mother verbalizes she is able to independently latch with appropriate positioning and alignment. She denies any nipple discomfort and is responsively . She says latches well but comes off the breast and needs help latching again. Infant is currently meeting outcomes for weight, output, jaundice, blood sugar and feeding frequencies of 8-12 times in 24 hours. Mother declines any additional assistance or education at this time. Mother is encouraged to call for assistance if her doesn?t latch, pain with latching, questions or concerns. Mother voiced understanding of information shared along with the mom/baby guide for an additional resource. Name/number on communication board. Reported to the Primary RN.
[2024-06-06 11:09] VITALS: PULSE 88; RESP 18; TEMP 36.5; O2SAT 99
== END 2024-06-05 11:15 | disposition home or self-care (01) | DRG 807 ==
LOC: ANHLDR 21:08 → ANHOB2 06-04 01:23
PROVIDERS: Admitting Provider Obstetrics & Gynecology Gynecology; PCP Internal Medicine; Visit Provider Obstetrics & Gynecology Gynecology
DX: O10.92 Unspecified pre-existing hypertension complicating childbirth (principal); Z37.0 Single live birth; O24.429 Gestational diabetes mellitus in childbirth, unspecified control; Z3A.39 39 weeks gestation of pregnancy; O77.0 Labor and delivery complicated by meconium in amniotic fluid; O70.1 Second degree perineal laceration during delivery; O69.2XX0 Labor and delivery complicated by other cord entanglement, with compression, not applicable or unspecified
CPT/HCPCS: 36415; 82948; 85014; 85018; 85025; 85055; 86593; 86703; 86850; 86900; 86901; 88307; A9270; G0432; J2590; J2795; J7030; J7120